=== PATIENT | female | born 1930 | race Caucasian/White ===

== ENCOUNTER 2016-05-07 11:22 | Day surgery (SDC) | payer OTHER ==
[~2016-05-07 11:22] MED LIST: APIX5TAB PO; ASPI81CH CHEW; ATOR1TAB18 PO; CARV3.12 PO; FURO20TA PO; HYDR500C2 PO; IPRA0.06 EACH NARE; LISI-519 PO; METF-382 PO; MULTCAP13 PO; NITR0.4S SL
[2016-05-07] MEDS ORDERED: ceFAZolin 2 GM PREMIX 50 ML IV SCH (12:00)
[2016-05-07] MEDS ORDERED: NS 1000 ML IV SCH (12:00)
[2016-05-07] MEDS ORDERED: POVIDONE IODINE 5% (ANTISEPSIS KIT) 4 APPLICATIONS EACH NARE SCH (12:00)
[2016-05-07] MEDS ORDERED: CHLORHEXIDINE GLUCONATE 2 % 1 PACK (2 CLOTHS) TOP SCH (12:00)
[2016-05-07] MEDS ORDERED: MUPIROCIN 2% OINT 1 APPLIC/GM SYR NASAL SCH (12:00)
[2016-05-07] MEDS ORDERED: VITA100018 PO (12:09)
[2016-05-07] MEDS ORDERED: PLAV75TA29 PO (12:09)
[2016-05-07] MEDS ORDERED: MIDAZOLAM HCL 5 MG/5 ML VIAL ONE (12:14)
[2016-05-07] MEDS ORDERED: CLOPIDOGREL 300 MG TAB ONE (13:10)
--- NOTE | 2016-05-07 14:50 | MR ---
cc: VENKAT LOMBARDI MD DATE: 05/07/2016. PREPROCEDURE DIAGNOSIS: Atrial fibrillation of questionable burden. POSTOPERATIVE DIAGNOSIS: Successful loop recorder insertion. PROCEDURE PERFORMED: Loop recorder insertion. PERFORMING PHYSICIAN: Venkat Lombardi M.D. DESCRIPTION OF THE PROCEDURE: The patient was brought to the DOC unit in the postabsorptive state after informed consent was obtained. A [employer] LINQ loop recorder was inserted subcutaneously to the left chest. The patient tolerated the procedure well without any apparent complications. Tachybrady pause and atrial fibrillation detection was enabled. The initial R-wave was 1.19 mV. The serial number was [id number]. MD GRETA Drake/KELSIE /1:48 PM /2:47 PM
== END 2016-05-07 15:20 | disposition home or self-care (01) ==
LOC: HCAT 11:22 → HDIC 11:24 → HCAT 15:20
PROVIDERS: ATTEND Nuclear Medicine Nuclear Cardiology
DX: I48.91 Unspecified atrial fibrillation (principal); I25.10 Atherosclerotic heart disease of native coronary artery without angina pectoris; I10 Essential (primary) hypertension; E11.9 Type 2 diabetes mellitus without complications; E78.5 Hyperlipidemia, unspecified; Z98.61 Coronary angioplasty status
CPT/HCPCS: 33282; C1764; J0690; J2250; J3010

== ENCOUNTER 2017-05-20 08:14 | Emergency (ER) | payer OTHER ==
[~2017-05-20] VITALS: Ht 167.6 cm; Wt 75.9 kg
[~2017-05-20 08:14] MED LIST changes: +ASPI-516 CHEW; -ASPI81CH CHEW; -ATOR1TAB18 PO; +ATOR80TA45 PO; -IPRA0.06 EACH NARE; +PLAV75TA29 PO; +VITA100018 PO
[2017-05-20 08:16] VITALS: BP 193/95; PULSE 83; RESP 16; TEMP 97.4; O2SAT 97
[2017-05-20 08:37] VITALS: BP 144/92; PULSE 74; RESP 18; O2SAT 98
[2017-05-20] MEDS ORDERED: TETANUS/DIPHTHERIA TOXOID ADULT 0.5 ML VIAL IM ONE (08:45)
--- NOTE | 2017-05-20 08:47 | PD ---
HPI Chief Complaint: Fall Time Seen by Provider: 08:31 Travel History International Travel<30 days: No Contact w/Intl Traveler<30days: No Traveled to known affect area: No History of Present Illness HPI 86-year-old female complains of right eye pain, right elbow pain, right wrist pain, left knee pain and left knee abrasion, right-sided chest wall pain. Patient states that she fell this morning. Patient denies loss of consciousness. Patient denies any headache or neck pain. Patient denies any visual change. Patient complains of right-sided chest wall pain. Patient states the pain is sharp pain localized the right side chest wall area. Patient denies any pain radiation. Patient states that the pain is not worse with deep inspiration. Patient complaining of mild aching pain in the right elbow, right wrist and also abrasion the left knee. Patient denies any other injury. Patient denies any back pain or abdominal pain. Patient is not up-to- date with TD booster. Patient's on Eliquis PFSH Past Medical History Hx Anticoagulant Therapy: Yes (ELIQUIS AND BABY ASA DAILY) Autoimmune Disease: Yes (POLYCYTHEMIA) Anxiety: Yes Heart Rhythm Problems: No Cancer: Yes (HX OF CERVICAL CA) Cardiovascular Problems: Yes (SD'2, HTN) High Cholesterol: Yes Chest Pain: No Congestive Heart Failure: No Cerebrovascular Accident: No Diabetes: Yes (TYPE 2) Patient Takes Glucophage: Yes Diminished Hearing: No Deep Vein Thrombosis: Yes (LE) Endocrine: Yes Gastrointestinal Disorders: No GERD: Yes Glaucoma: No Genitourinary: No Hepatitis: No Hiatal Hernia: No Hypertension: Yes Immune Disorder: No Musculoskeletal: No Neurologic: Yes Psychiatric: Yes Reproductive: No Respiratory: No Integumentary: No Migraines: No Seizures: No Thyroid Disease: No Ulcer: No Tetanus Vaccination: Unknown Influenza Vaccination: Yes ?: Not Past Surgical History Cardiac Surgery: Yes (heart cvath 3 stents 2014) Hysterectomy: Yes Pacemaker: No Other Surgery: Yes (VENA CAVE FILTER ) Social History Alcohol Use: Yes (1 DRINK PER WEEK) Tobacco Use: No Substance Use: No Allergies-Medications (Allergen,Severity, Reaction): Coded Allergies: rivaroxaban (Unverified Allergy, Severe, 05/20/17) Uncoded Allergies: BLOOD THINNERS (Adverse Reaction, Intermediate, Bleeding, 04/27/13) RECENT SEVER GI BLEED. PT TOLD NOT TO TAKE THINNERS. Reported Meds & Prescriptions Reported Meds & Active Scripts Active Eliquis (Apixaban) 5 Mg Tab 5 Mg PO BID Metformin ER (Metformin HCl) 1,000 Mg Doni 1,000 Mg PO DAILY With evening meal Please hold until 03/17/16 Reported Vitamin D3 (Cholecalciferol) 1,000 Unit Tab 1,000 Units PO DAILY Furosemide 20 Mg Tab 20 Mg PO BID PRN Multi Complete (Multiple Vitamins W/ Minerals) 1 Cap Cap 1 Tab PO DAILY Nitrostat SL (Nitroglycerin) 0.4 Mg Subl 0.4 Mg SL DIRECTED PRN 1 tablet under the tongue as needed for chest pain. Repeat every 5 minutes for a total of 3 DOSES or call 911 if NO relief. Lisinopril 5 Mg Tab 5 Mg PO DAILY Carvedilol 3.125 Mg Tab 3.125 Mg PO BID Atorvastatin (Atorvastatin Calcium) 80 Mg Tab 80 Mg PO HS Aspirin 81 Mg Chew 81 Mg CHEW DAILY Review of Systems General / Constitutional: No: Fever Eyes: No: Visual changes HENT: No: Headaches Cardiovascular: No: Chest Pain or Discomfort Respiratory: No: Shortness of Breath Gastrointestinal: No: Abdominal Pain Genitourinary: No: Dysuria Musculoskeletal: Positive: Pain Skin: No Rash Neurologic: No: Weakness Psychiatric: No: Depression Endocrine: No: Polydipsia Hematologic/Lymphatic: No: Easy Bruising Physical Exam Narrative GENERAL: Well-nourished, well-developed patient. SKIN: Focused skin assessment warm/dry. HEAD: Normocephalic. Ecchymosis swelling tenderness soft tissue area on the right forehead and right eyebrow area. EYES: No scleral icterus. No injection or drainage. Extraocular muscle intact. Pupils 1.5 mm equal reactive. NECK: Supple, trachea midline. No JVD or lymphadenopathy. CARDIOVASCULAR: Regular rate and rhythm without murmurs, gallops, or rubs. RESPIRATORY: Breath sounds equal bilaterally. No accessory muscle use. GASTROINTESTINAL: Abdomen soft, non-tender, nondistended. MUSCULOSKELETAL: No cyanosis, or edema. Mild tenderness on palpation right elbow and right wrist. Patient has minor skin abrasion prepatellar area left knee. Full range of motion the left knee. Knee joints stable. Mild tenderness on palpation of left patella. BACK: Nontender without obvious deformity. No CVA tenderness. Neurologic exam normal. Data Data Last Documented VS Vital Signs Date Time Temp Pulse Resp B/P (MAP) Pulse Ox O2 Delivery O2 Flow Rate FiO2 05/20/17 08:37 74 18 144/92 (109) 98 Room Air 05/20/17 08:[address] Brain W/O Iv Contrast(Rout) (05/20/17 08:38) Elbow, Complete (4 Vws) (05/20/17 08:38) Knee, Ltd (1 Or 2vws) (05/20/17 08:38) Wrist, Complete ([id number]) (05/20/17 08:38) Chest, Single Ap (05/20/17 08:38) Tetanus/Diphtheria Tox Adult (Tetanus/Di (05/20/17 08:45) MDM Medical Decision Making Medical Screen Exam Complete: Yes Emergency Medical Condition: Yes Interpretation(s) Last Impressions Wrist X-Ray 05/20/17837 Signed Impressions: Service Date/Time: Saturday, May 20, 2017 08:47 - CONCLUSION: Soft tissue swelling without fracture. Sukhdeep Verdin MD Knee X-Ray 05/20/17837 Signed Impressions: Service Date/Time: Saturday, May 20, 2017 08:47 - CONCLUSION: No acute disease. Tigre Hopper Jr., MD Head CT 05/20/17837 Signed Impressions: Service Date/Time: Saturday, May 20, 2017 09:09 - CONCLUSION: 1. Right periorbital soft tissue hematoma. 2. No acute intracranial abnormality. Sukhdeep Verdin MD Elbow X-Ray 05/20/17837 Signed Impressions: Service Date/Time: Saturday, May 20, 2017 08:47 - CONCLUSION: 1. No acute fracture observed. 2. Large joint effusion. 3. Periosteal thickening and underlying cortical irregularity involving the distal lateral humeral metaphysis consistent with remote trauma. Tigre Hopper Jr., MD Chest X-Ray 05/20/17837 Signed Impressions: Service Date/Time: Saturday, May 20, 2017 08:47 - CONCLUSION: 1. Mild cardiomegaly without pulmonary vascular engorgement. 2. Chronic interstitial changes. 3. Rounded ossified structures associated with the right shoulder. These could either relate to calcified lymph nodes or perhaps free bodies within the joint. Tigre Hopper Jr., MD Differential Diagnosis Differential diagnosis including contusion, concussion, intracranial hemorrhage , fracture, dislocation. Narrative Course 86-year-old female with forehead injury, right arm injury, left knee injury. TD booster given. Diagnosis Primary Impression: Closed head injury Qualified Codes: S09.90XA - Unspecified injury of head, initial encounter Additional Impressions: Multiple contusions Abrasion, left knee, initial encounter Patient Instructions: General Instructions Additional Instructions: Wound care daily. Tylenol for pain. Head trauma instructions given. Follow- up with personal physician orthopedist if persistent problem. Med/Other Pt SpecificInfo: No Meds Exist/No RX given Disposition: 01 DISCHARGE HOME Condition: Stable Juan Carlos Flowers MD May 20, 2017 08:47
--- NOTE | 2017-05-20 09:01 | RADRPT ---
EXAM DATE/TIME: 05/20/2017 08:47 [facility] COMPARISON: No previous studies available for comparison. INDICATIONS : Right wrist pain post fall. MEDICAL HISTORY : Myocardial infarction. Hypertension Diabetes mellitus type II. Cervical Carcinoma SURGICAL HISTORY : Cardiac stent ENCOUNTER: Initial ACUITY: 1 day PAIN SCORE: 10/10 LOCATION: Right wrist FINDINGS: Three view examination of the right wrist demonstrates soft tissue swelling dislocation or fracture. The carpal bones are in normal alignment. Bony mineralization is normal. CONCLUSION: Soft tissue swelling without fracture. Sukhdeep Verdin MD on May 20, 2017 at 8:57 Board Certified Radiologist. This report was verified electronically.
--- NOTE | 2017-05-20 09:12 | RADRPT ---
EXAM DATE/TIME: 05/20/2017 08:47 [facility] COMPARISON: CHEST SINGLE AP, January 23, 2015, 14:41. INDICATIONS : Right side chest pain MEDICAL HISTORY : Myocardial infarction. Hypertension Diabetes mellitus type II. DVT, Cervical carcinoma SURGICAL HISTORY : Cardiac stent ENCOUNTER: Initial ACUITY: 1 day PAIN SCORE: 10/10 LOCATION: Right lateral chest FINDINGS: A single portable frontal view the chest shows chronic interstitial changes throughout both lungs. Th is is stable. No infiltrate or effusion. Heart is mildly enlarged but stable. Aorta is calcified and ectatic. Rounded ossified structures are seen associated with the right shoulder. The bony structures are otherwise unremarkable. CONCLUSION: 1. Mild cardiomegaly without pulmonary vascular engorgement. 2. Chronic interstitial changes. 3. Rounded ossified structures associated with the right shoulder. These could either relate to calci fied lymph nodes or perhaps free bodies within the joint. Tigre Hopper Jr., MD on May 20, 2017 at 9:07 Board Certified Radiologist. This report was verified electronically.
--- NOTE | 2017-05-20 09:17 | RADRPT ---
EXAM DATE/TIME: 05/20/2017 08:47 [facility] COMPARISON: No previous studies available for comparison. INDICATIONS : Right elbow pain post fall MEDICAL HISTORY : Myocardial infarction. Hypertension Diabetes mellitus type II. DVT, Cervical carcinoma SURGICAL HISTORY : Cardiac stent ENCOUNTER: Initial ACUITY: 1 day PAIN SCORE: 10/10 LOCATION: Right posterior elbow FINDINGS: 4 views of the elbow show osteopenia. There is a large joint effusion. No discrete fracture or disloc ation observed. There is a smooth benign appearing periosteal thickening with scattered lucencies inv olve the underlying cortex involving the lateral distal cortex of the humeral metaphysis.. This sugge sts prior trauma. Soft tissues are unremarkable. CONCLUSION: 1. No acute fracture observed. 2. Large joint effusion. 3. Periosteal thickening and underlying cortical irregularity involving the distal lateral humeral me taphysis consistent with remote trauma. Tigre Hopper Jr., MD on May 20, 2017 at 9:10 Board Certified Radiologist. This report was verified electronically.
--- NOTE | 2017-05-20 09:18 | RADRPT ---
EXAM DATE/TIME: 05/20/2017 08:47 [facility] COMPARISON: No previous studies available for comparison. INDICATIONS : Left knee pain post fall. MEDICAL HISTORY : Myocardial infarction. Hypertension Diabetes mellitus type II. DVT, Cervical carcinoma SURGICAL HISTORY : Cardiac stent ENCOUNTER: Initial ACUITY: 1 day PAIN SCORE: 10/10 LOCATION: Left anterior knee FINDINGS: Two view examination of the left knee demonstrates no evidence of fracture or dislocation. Bony mine ralization is normal. The suprapatellar soft tissues have a normal configuration. CONCLUSION: No acute disease. Tigre Hopper Jr., MD on May 20, 2017 at 9:14 Board Certified Radiologist. This report was verified electronically.
--- NOTE | 2017-05-20 09:23 | RADRPT ---
EXAM DATE/TIME: 05/20/2017 09:09 [facility] COMPARISON: No previous studies available for comparison. INDICATIONS : Trauma. Trip and fall, hit head. Swelling above right eye. RADIATION DOSE: 61.60 CTDIvol (mGy) MEDICAL HISTORY : Deep venous thrombosis. Myocardial infarction. Gastroesophageal reflux disease.Cervical cancer. Diab etes. Hypertension. SURGICAL HISTORY : Hysterectomy. ENCOUNTER: Initial ACUITY: 1 day PAIN SCALE: 6/10 LOCATION: Right cranial TECHNIQUE: Multiple contiguous axial images were obtained of the head. Using automated exposure control and adj ustment of the mA and/or kV according to patient size, radiation dose was kept as low as reasonably a chievable to obtain optimal diagnostic quality images. DICOM format image data is available electro nically for review and comparison. FINDINGS: CEREBRUM: The ventricles are normal for age. No evidence of midline shift, mass lesion, hemorrhage or acute in farction. No extra-axial fluid collections are seen. POSTERIOR FOSSA: The cerebellum and brainstem are intact. The 4th ventricle is midline. The cerebellopontine angle i s unremarkable. EXTRACRANIAL: The visualized portion of the orbits is intact. SKULL: The calvaria is intact. No evidence of skull fracture. Right periorbital hematoma. CONCLUSION: 1. Right periorbital soft tissue hematoma. 2. No acute intracranial abnormality. Sukhdeep Verdni MD on May 20, 2017 at 9:17 Board Certified Radiologist. This report was verified electronically.
[2017-05-20 10:00] VITALS: BP 164/79
== END 2017-05-20 10:07 | disposition home or self-care (01) ==
LOC: PHED 08:14
DX: S09.90XA Unspecified injury of head, initial encounter (principal); S80.212A Abrasion, left knee, initial encounter; M25.521 Pain in right elbow; M25.531 Pain in right wrist; E11.9 Type 2 diabetes mellitus without complications; E78.00 Pure hypercholesterolemia, unspecified; I10 Essential (primary) hypertension; I25.2 Old myocardial infarction; W01.0XXA Fall on same level from slipping, tripping and stumbling without subsequent striking against object, initial encounter; Z79.01 Long term (current) use of anticoagulants; Z79.84 Long term (current) use of oral hypoglycemic drugs; Z23 Encounter for immunization
CPT/HCPCS: 70450; 71045; 73080; 73110; 73560; 90471; 90714

== ENCOUNTER 2017-07-16 13:30 | Emergency (ER) | payer OTHER ==
[~2017-07-16] VITALS: Ht 167.6 cm; Wt 73.6 kg
[~2017-07-16 13:30] MED LIST changes: -HYDR500C2 PO; -PLAV75TA29 PO
[2017-07-16 13:46] VITALS: BP 142/75; PULSE 78; RESP 16; TEMP 97.9; O2SAT 95
[2017-07-16] MEDS ORDERED: HYDROXUREA PO (14:21)
[2017-07-16] MEDS ORDERED: LIDOCAINE 1%/EPINEPHrine 1:100,000 SOLN 20 ML VIAL INFIL ONE (15:00)
[2017-07-16] MEDS ORDERED: GELFOAM SIZE 100 TOPICAL ONE (15:30)
--- NOTE | 2017-07-16 15:31 | PD ---
HPI Chief Complaint: Laceration/Skin Injury Time Seen by Provider: 14:38 Travel History International Travel<30 days: No Contact w/Intl Traveler<30days: No Traveled to known affect area: No History of Present Illness HPI This is a 87-year-old female here with a skin tear to her right lower extremity. Patient injured the leg on a branch while working in the yard prior to arrival. She currently takes Eliquis and was unable to get the bleeding to stop which prompted her visit. She presented to the ER immediately after the injury. Symptom severity is mild to moderate. She denies paresthesia or weakness of the extremity. No aggravating or alleviating factors. Tetanus immunization is up-to-date. PFSH Past Medical History Hx Anticoagulant Therapy: Yes Autoimmune Disease: Yes (POLYCYTHEMIA) Anxiety: Yes Heart Rhythm Problems: No Cancer: Yes (HX OF CERVICAL CA) Cardiovascular Problems: Yes (htn on meds, afib, loop recorder, MS x 2 stents 5 total) High Cholesterol: Yes Chest Pain: No Congestive Heart Failure: No Cerebrovascular Accident: No Diabetes: Yes (type 2) Patient Takes Glucophage: No Diminished Hearing: No Deep Vein Thrombosis: Yes (LE) Endocrine: Yes GERD: Yes Glaucoma: No Genitourinary: No Headaches: No Hepatitis: No Hiatal Hernia: No Hypertension: Yes Immune Disorder: No Implanted Vascular Access Dvce: No Musculoskeletal: No Neurologic: Yes Psychiatric: Yes Reproductive: No Respiratory: No Integumentary: No Migraines: No Seizures: No Thyroid Disease: No Ulcer: No Tetanus Vaccination: < 5 Years ?: Not Past Surgical History Cardiac Surgery: Yes (heart cvath 3 2014) Hysterectomy: Yes Neurologic Surgery: No Pacemaker: No Other Surgery: Yes (VENA CAVE FILTER ) Social History Alcohol Use: Yes (1 DRINK PER WEEK) Tobacco Use: No Substance Use: No Allergies-Medications (Allergen,Severity, Reaction): Coded Allergies: rivaroxaban (Unverified Allergy, Severe, 07/16/17) Reported Meds & Prescriptions Reported Meds & Active Scripts Active Eliquis (Apixaban) 5 Mg Tab 5 Mg PO BID Metformin ER (Metformin HCl) 1,000 Mg Doni 1,000 Mg PO DAILY With evening meal Please hold until 03/17/16 Reported [Hydroxurea] Unknown Dose PO BID Nitrostat SL (Nitroglycerin) 0.4 Mg Subl 0.4 Mg SL DIRECTED PRN 1 tablet under the tongue as needed for chest pain. Repeat every 5 minutes for a total of 3 DOSES or call 911 if NO relief. Lisinopril 5 Mg Tab 5 Mg PO DAILY Carvedilol 3.125 Mg Tab 3.125 Mg PO BID Atorvastatin (Atorvastatin Calcium) 80 Mg Tab 80 Mg PO HS Aspirin 81 Mg Chew 81 Mg CHEW DAILY Review of Systems Except as stated in HPI: all other systems reviewed are Neg General / Constitutional: No: Fever Eyes: No: Visual changes HENT: No: Headaches Cardiovascular: No: Chest Pain or Discomfort Respiratory: No: Shortness of Breath Gastrointestinal: No: Abdominal Pain Genitourinary: No: Dysuria Neurologic: No: Weakness Physical Exam Narrative GENERAL: Alert and well appearing 87-year-old female SKIN: Warm and dry. 5 cm skin tear to the left lower cruz. No active bleeding. HEAD: Normocephalic. Atraumatic EYES: No injection or drainage. NECK: Supple CARDIOVASCULAR: Regular rate and rhythm RESPIRATORY: Breath sounds equal bilaterally. No accessory muscle use. GASTROINTESTINAL: Abdomen soft, non-tender, nondistended. MUSCULOSKELETAL: No cyanosis, or edema. Left lower extremity: 5 cm skin tear to the left lower cruz. Bleeding is well controlled. Wound edges in relatively good alignment. 2+ distal pulses. Normal sensation. Brisk cap refill. Data Data Last Documented VS Vital Signs Date Time Temp Pulse Resp B/P (MAP) Pulse Ox O2 Delivery O2 Flow Rate FiO2 07/16/17 13:46 97.9 78 16 142/75 (97) 95 Orders Orders Lidocai-Epi 1%-1:100,000 Inj (Xylocaine- (07/16/17 15:00) Gelfoam 100 Top (Gelfoam 100 Top) (07/16/17 15:30) MDM Medical Decision Making Medical Screen Exam Complete: Yes Emergency Medical Condition: Yes Differential Diagnosis Skin tear, lower extremity laceration, abrasion Narrative Course This is an 87-year-old female with a skin tear to the left lower extremity. The bleeding is well controlled during the time of my exam. There is no active bleeding. Wound edges are in relatively good alignment due to the nature of the wound being a skin tear and very thin skin suture repair is not feasible. Quick clot hemostat dressing was applied. Hemostasis is achieved. Patient is to follow-up with her primary doctor for recheck. Return precautions were discussed. Diagnosis Primary Impression: Skin tear of left lower leg without complication Qualified Codes: S81.812A - Laceration without foreign body, left lower leg, initial encounter Referrals: Primary Care Physician Additional Instructions: Leave the dressing applied in the emergency department in place for 2 days. Remove the dressing by applying warm water to the bandage and gently removing. Apply a thin layer of antibiotic ointment and cover with a dry dressing every 1- 2 days. Follow-up with her primary doctor. Disposition: 01 DISCHARGE HOME Condition: Stable Sujey Benson Jul 16, 2017 15:31
== END 2017-07-16 16:09 | disposition home or self-care (01) ==
LOC: PHEFT 13:30
DX: S81.811A Laceration without foreign body, right lower leg, initial encounter (principal); W22.8XXA Striking against or struck by other objects, initial encounter; D75.1 Secondary polycythemia; E11.9 Type 2 diabetes mellitus without complications; I10 Essential (primary) hypertension; F41.9 Anxiety disorder, unspecified; E78.00 Pure hypercholesterolemia, unspecified; K21.9 Gastro-esophageal reflux disease without esophagitis; Z86.718 Personal history of other venous thrombosis and embolism
CPT/HCPCS: 12002